=== PATIENT | female | born 1950 | race Two or more races ===

== ENCOUNTER 2017-10-03 18:06 | Inpatient (IN) | payer MEDICARE, MEDICAID ==
--- NOTE | 2017-10-03 18:37 | ED Physician Chart ---
ED Chief Complaint/HPI - Patient Information Date Seen:: 10/03/17 Time Seen:: 18:10 Chief Complaint:: Weakness History of Present Illness:: onset x 2 days of intermittent right sided facial weakness; no report of trauma , LOC, ALOC, AMS, H/As, neck pain, C/P, SOB, Abd. Pain, A/N/V/D/C, fever, chills , or urinary s/s; no report of syncope, NS, or dizziness/vertigo Allergies:: Allergies Allergy/AdvReac Type Severity Reaction Status Date / Time No Known Allergies Allergy Verified 10/03/17 18:08 Vitals:: Vital Signs - 8 hr 10/03/17 18:13 Temp 98 F HR 70 RR 16 BP 141/100 O2 Sat % 96 Historian:: Patient, EMS Review:: Nurse's Note Reviewed, Old Chart Reviewed, EMS run form Reviewed <Christoph Molina - Last Filed: 10/03/17 18:52> - Patient Information Allergies:: Allergies Allergy/AdvReac Type Severity Reaction Status Date / Time No Known Allergies Allergy Verified 10/03/17 18:08 Vitals:: Vital Signs - 8 hr 10/03/17 10/03/17 18:13 20:17 Temp 98 F 98 F HR 70 69 RR 16 16 BP 141/100 166/86 O2 Sat % 96 <Suzy Hahn - Last Filed: 10/04/17 00:00> ED Review of Systems - Review of Systems General/Constitutional: No fever, No chills, No weight loss, Weakness, No diaphoresis, No edema, No loss of appetite Skin: No skin lesions, No rash, No bruising Head: No headache, No light-headedness Eyes: No loss of vision, No pain, No diplopia ENT: No earache, No nasal drainage, No sore throat, No tinnitus Neck: No neck pain, No swelling, No thyromegaly, No stiffness, No mass noted Cardio Vascular: No chest pain, No palpitations, No PND, No orthopnea, No edema Pulmonary: No SOB, No cough, No sputum, No wheezing GI: No nausea, No vomiting, No diarrhea, No pain, No melena, No hematochezia, No constipation, No hematemesis G/U: No dysuria, No frequency, No hematuria, No nacturia Stick Puller: No vaginal discharge, No abnormal vaginal bleed, No contraction Musculoskeletal: No bone or joint pain, No back pain, No muscle pain Endocrine: No polyuria, No polydipsia Psychiatric: No prior psych history, No depression, No anxiety, No suicidal ideation, No homicidal ideation, No auditory hallucination, No visual hallucination Hematopoietic: No bruising, No lymphadenopathy Allergic/Immuno: No urticaria, No angioedema Neurological: No syncope, No focal symptoms, Weakness, No paresthesia, No headache, No seizure, Dizziness, No confusion, Vertigo <Christoph Molina - Last Filed: 10/03/17 18:52> ED Past Medical History - Past Medical History Obtainable: Yes Past Medical History: HTN, Asthma/COPD, PUD/GERD Family History: HTN Social History: Non Smoker, No Alcohol, No Drug Use, , Care Facility Surgical History: Appendectomy, Psychiatricy History: None Medication: Reviewed <Christoph Molina Last Filed: 10/03/17 18:52> Family Medical History - Family Member Mother History Unknown: Yes <Christoph Molina Filed: 10/03/17 18:52> ED Physical Exam - Physical Examination General/Constitutional: Awake, Well-developed, well-nourished, Alert, No distress, GCS 15, Non-toxic appearing, Ambulatory Head: Atraumatic Eyes: Lids, conjuctiva normal, PERRL, EOMI Skin: Nl inspection, No rash, No skin lesions, No ecchymosis, Well hydrated, No lymphadenopathy ENMT: External ears, nose nl, TM canals nl, Nasal exam nl, Lips, teeth, gums nl , Oropharynx nl, Tonsils nl Neck: Nontender, Full ROM w/o pain, No JVD, No nuchal rigidity, No bruit, No mass, No stridor Respiratory: Nl effort/Exclusion, Clear to Auscultation, No Wheeze/Rhonchi/Rales Cardio Vascular: RRR, No murmur, gallop, rubs, NL S1 S2, Carotid/Femoral/Distal pulses equal bilaterally GI: No tenderness/rebounding/guarding, No organomegaly, No hernia, Normal BS's, Nondistended, No mass/bruits, No McBurney tenderness : No CVA tenderness Extremities: No tenderness or effusion, Full ROM, normal strength in all extremities, No edema, Normal digits & nails Neuro/Psych: Alert/oriented, DTR's symmetric, Normal sensory exam, Normal motor strength, Judgement/insight normal, Mood normal, Normal gait Other Neuro/Psych comments:: Right Facial: decreased motor and sensory functions Misc: Normal back, No paraspinal tenderness <Christoph Molina - Last Filed: 10/03/17 18:52> ED Labs/Radiology/EKG Results - Lab Results Results: Laboratory Tests 10/03/17 10/03/17 10/03/17 18:50 18:50 18:50 WBC 5.1 RBC 4.03 Hgb 12.7 Hct 37.3 L MCV 92.4 MCH 31.6 H MCHC Differential 34.2 RDW 12.4 Plt Count 205 MPV 7.6 Neutrophils % 53.6 Lymphocytes % 30.7 Monocytes % 10.5 H Eosinophils % 4.1 Basophils % 1.1 PT 10.1 INR 0.97 D-Dimer Carbon Dioxide 26.2 BUN 19 Creatinine 0.4 L Est GFR ( Amer) > 60.0 Est GFR (Non-Af Amer) > 60.0 BUN/Creatinine Ratio 47.5 Glucose 76 Calcium 9.8 Total Bilirubin 0.4 AST 23 ALT 17 Alkaline Phosphatase 82 Creatine Kinase 118 Troponin I B-Natriuretic Peptide Total Protein 7.9 Albumin 4.1 Globulin 3.8 Albumin/Globulin Ratio 1.1 Triglycerides 118 Cholesterol 142 LDL Cholesterol Direct 85 HDL Cholesterol 43 10/03/17 10/03/17 10/03/17 18:50 18:50 18:50 WBC RBC Hgb Hct MCV MCH MCHC Differential RDW Plt Count MPV Neutrophils % Lymphocytes % Monocytes % Eosinophils % Basophils % PT INR D-Dimer 901 H Carbon Dioxide BUN Creatinine Est GFR ( Amer) Est GFR (Non-Af Amer) BUN/Creatinine Ratio Glucose Calcium Total Bilirubin AST ALT Alkaline Phosphatase Creatine Kinase Troponin I 0.02 B-Natriuretic Peptide 7.2 Total Protein Albumin Globulin Albumin/Globulin Ratio Triglycerides Cholesterol LDL Cholesterol Direct HDL Cholesterol <Suzy Hahn - Last Filed: 10/04/17 00:00> ED Septic Shock - . Is Septic Shock (SBP<90, OR Lactate>4 mmol\L) present?: No - <6hrs of presentation: Vital Signs: Vital Signs - 8 hr 10/03/17 18:13 Temp 98 F HR 70 RR 16 BP 141/100 O2 Sat % 96 <Christoph Molina - Last Filed: 10/03/17 18:52> - <6hrs of presentation: Vital Signs: Vital Signs - 8 hr 10/03/17 10/03/17 18:13 20:17 Temp 98 F 98 F HR 70 69 RR 16 16 BP 141/100 166/86 O2 Sat % 96 <Suzy Hahn - Last Filed: 10/04/17 00:00> ED Reassessment (Disposition) - Reassessment Reassessment Condition:: Improved - Diagnosis Diagnosis:: Weakness; TIA; CVA <Christoph Molina - Last Filed: 10/03/17 18:52> - Reassessment Reassessment:: Right parotid gland area swelling and pain, patient refused CT maxillofacial, u/ s on the right parotid gland area showed no cyst or mass. Elevated D-Dimer, RLE pain and edema, RLE venous u/s: negative for DVT. Patient reported one episode of chest pressure in ER which later subsided. PE cannot be ruled out at this time. Admit patient to telemetry for further evaluation and management. - Patient Disposition Discharge/Transfer:: Acute Care w/in this hosp Admitting Medical Physician:: Linwood Gupta <Suzy Hahn - Last Filed: 10/04/17 00:00>
[2017-10-03 18:59] LABS: % BASOPHILS 1.1 % (0.0-2.0); % EOSINOPHILS 4.1 % (0.0-5.0); % LYMPHOCYTES 30.7 % (20.0-50.0); % MONOCYTES 10.5 % (2.0-10.0); % NEUTROPHILS 53.6 % (40.0-80.0); BASOPHILE ABSOLUTE 0.1 Th/cumm (0-0.2); EOSINOPHILE ABSOLUTE 0.2 Th/cmm (0.1-0.4); HEMATOCRIT 37.3 % (41.0-60); HEMOGLOBIN 12.7 gm/dL (12-16); LYMPHOCYTE ABSOLUTE 1.6 Th/cmm (1.5-3.0); MEAN CELL VOLUME 92.4 fl (81-100); MEAN CORPUSCULAR HEMOGLOBIN 31.6 pg (27.0-31.0); MEAN CORPUSCULAR HGB CONC 34.2 pg (28.0-36.0); MEAN PLATELET VOLUME 7.6 fl; MONOCYTE ABSOLUTE 0.5 Th/cmm (0.3-1.0); NEUTROPHILE ABSOLUTE 2.7 Th/cmm (1.8-8.0); PLATELET COUNT 205 Th/cmm (150-400); RED BLOOD COUNT 4.03 Mil/cmm (3.80-5.20); RED CELL DISTRIBUTION WIDTH 12.4 % (11.5-20.0); WHITE BLOOD COUNT 5.1 Th/cmm (4.8-10.8)
[2017-10-03 19:08] LABS: INR 0.97 (0.5-1.4); PROTHROMBIN TIME (TEST) 10.1 SECONDS (9.5-11.5)
[2017-10-03 19:14] LABS: ALB/GLOB RATIO 1.1 (1.0-1.8); ALBUMIN 4.1 gm/dL (3.7-5.3); ALKALINE PHOSPHATASE 82 U/L (34-104); BILIRUBIN,TOTAL 0.4 mg/dL (0.3-1.0); BUN - UREA NITROGEN 19 mg/dL (7-25); CALCIUM SERUM 9.8 mg/dL (8.6-10.3); CARBON DIOXIDE 26.2 mEq/L (21.0-31.0); CHOLESTEROL 142 mg/dL (<200); CREATININE - SERUM 0.4 mg/dL (0.6-1.2); CREATININE KINASE 118 U/L (30-223); GFR AFRICAN-AMERICAN > 60.0 ml/min (>90); GFR NON AFRICAN-AMERICAN > 60.0 ml/min; GLUCOSE 76 mg/dL (70-105); HDL -HIGH DENSITY LIPOPROTEIN 43 mg/dL (23-92); SGOT 23 U/L (13-39); SGPT/ALT 17 U/L (7-52); TOTAL PROTEIN,SERUM 7.9 gm/dL (6.0-8.3); TRIGLYCERIDES 118 mg/dL (<150)
[2017-10-03] MEDS ORDERED: Sodium Chloride 0.9% 1,000 ML IV ONE (22:15)
[2017-10-04] MEDS ORDERED: DIPHENHYDRAMINE HCL TP PRN (00:19)
[2017-10-04] MEDS ORDERED: [UNRECOGNIZED DRUG - OTHER] TP PRN (00:19)
[2017-10-04] MEDS ORDERED: Menthol/Methyl Salicylate Cream TP PRN (00:19)
[2017-10-04] MEDS ORDERED: ZINC ACETATE TP PRN (00:19)
[2017-10-04] MEDS ORDERED: Fleet Enema 135 mL RC PRN (00:19)
[2017-10-04] MEDS ORDERED: Magnesium Hydroxide (MOM) 30 mL UDC PO PRN (00:19)
[2017-10-04] MEDS ORDERED: guaiFENesin 200 MG/10 ML UDC PO PRN (00:21)
[2017-10-04] MEDS ORDERED: Hydrocodone/APAP 5mg/325mg Tab PO PRN (00:21)
[2017-10-04] MEDS ORDERED: Ipratropium Neb 0.5 mg/2.5 mL UD HHN PRN (00:21)
[2017-10-04 01:16] LABS: ANION GAP 14.3 (7.0-16.0); CHLORIDE 104 mEq/L (98-107); POTASSIUM SERUM 3.5 mEq/L (3.5-5.1); SODIUM SERUM 141 mEq/L (136-145)
[2017-10-04 01:18] VITALS: BP 141/100
[2017-10-04] MEDS: D5-0.9%NS 1,000 ML IV SCH ×2 (01:30→14:38)
[2017-10-04] MEDS: Albuterol Nebulizer 2.5mg/3mL HHN SCH ×4 (07:16→18:56)
--- NOTE | 2017-10-04 08:24 | Diagnostic Imaging Report ---
Ultrasound soft tissues of the neck HISTORY: Right neck swelling Sonographic sector images were obtained over the right neck and right infra-auricular region. No discrete focal lesions are seen. Specific, no abnormal masses or fluid collections. IMPRESSION: 1. Negative examination. If needed, a CT scan would provide additional detail and assessment.
--- NOTE | 2017-10-04 08:24 | Diagnostic Imaging Report ---
CT scan of the brain without contrast History: Stroke, CVA Total DLP equals 562 CTDI equals 34.5 Axial sections were obtained from the base of the skull to the vertex. There is a normal ventricular system size. No focal parenchymal lesions are seen. No evidence of any mass effect or shift of midline structures. No extra-axial masses or abnormal fluid collections. Impression: Negative examination
--- NOTE | 2017-10-04 08:25 | Diagnostic Imaging Report ---
Right lower extremity Doppler venous ultrasound exam HISTORY: Pain/swelling Sonographic sector images were obtained through the deep venous systems of the right leg. Associated Doppler data was obtained. The exam demonstrates patency of the common femoral, superficial femoral, popliteal, and posterior tibial veins. Specifically, no thrombus is seen. There are normal compressibility and augmentation responses. IMPRESSION: Negative exam for deep vein thrombophlebitis.
--- NOTE | 2017-10-04 08:27 | Diagnostic Imaging Report ---
Portable chest x-ray HISTORY: Pain There is a very poor inspiration. Elevation the right hemidiaphragm. Heart size is difficult to assess. No definite focal pulmonary processes. IMPRESSION: 1. Poor inspiration with elevation the right hemidiaphragm. 2. No focal pulmonary processes
[2017-10-04] MEDS ORDERED: VTE Chemical Prophylaxis Screen/Admission MC PRN (10:31)
[2017-10-04] MEDS ORDERED: IOHEXOL 300mgI/mL 100 ML VIAL IVP ONE (13:47)
--- NOTE | 2017-10-04 13:51 | Internal Medicine Prog Note ---
Internal Medicine Subjective - Subjective Service Date: 10/04/17 ([id number] hnp dictated) Internal Medicine Objective - Results Result Diagrams: 10/03/17 18:50 10/03/17 18:50 Recent Labs: Laboratory Last Values WBC 5.1 Th/cmm (4.8-10.8) 10/03/17 18:50 RBC 4.03 Mil/cmm (3.80-5.20) 10/03/17 18:50 Hgb 12.7 gm/dL (12-16) 10/03/17 18:50 Hct 37.3 % (41.0-60) L 10/03/17 18:50 MCV 92.4 fl (81-100) 10/03/17 18:50 MCH 31.6 pg (27.0-31.0) H 10/03/17 18:50 MCHC Differential 34.2 pg (28.0-36.0) 10/03/17 18:50 RDW 12.4 % (11.5-20.0) 10/03/17 18:50 Plt Count 205 Th/cmm (150-400) 10/03/17 18:50 MPV 7.6 fl 10/03/17 18:50 Neutrophils % 53.6 % (40.0-80.0) 10/03/17 18:50 Lymphocytes % 30.7 % (20.0-50.0) 10/03/17 18:50 Monocytes % 10.5 % (2.0-10.0) H 10/03/17 18:50 Eosinophils % 4.1 % (0.0-5.0) 10/03/17 18:50 Basophils % 1.1 % (0.0-2.0) 10/03/17 18:50 PT 10.1 SECONDS (9.5-11.5) 10/03/17 18:50 INR 0.97 (0.5-1.4) 10/03/17 18:50 D-Dimer 901 ng/mL (100-400) H 10/03/17 18:50 Sodium 141 mEq/L (136-145) 10/03/17 18:50 Potassium 3.5 mEq/L (3.5-5.1) 10/03/17 18:50 Chloride 104 mEq/L (98-107) 10/03/17 18:50 Carbon Dioxide 26.2 mEq/L (21.0-31.0) 10/03/17 18:50 Anion Gap 14.3 (7.0-16.0) 10/03/17 18:50 BUN 19 mg/dL (7-25) 10/03/17 18:50 Creatinine 0.4 mg/dL (0.6-1.2) L 10/03/17 18:50 Est GFR ( Amer) > 60.0 ml/min (>90) 10/03/17 18:50 Est GFR (Non-Af Amer) > 60.0 ml/min 10/03/17 18:50 BUN/Creatinine Ratio 47.5 10/03/17 18:50 Glucose 76 mg/dL (70-105) 10/03/17 18:50 Calcium 9.8 mg/dL (8.6-10.3) 10/03/17 18:50 Total Bilirubin 0.4 mg/dL (0.3-1.0) 10/03/17 18:50 AST 23 U/L (13-39) 10/03/17 18:50 ALT 17 U/L (7-52) 10/03/17 18:50 Alkaline Phosphatase 82 U/L (34-104) 10/03/17 18:50 Creatine Kinase 118 U/L (30-223) 10/03/17 18:50 Troponin I 0.02 ng/mL (0.01-0.05) 10/03/17 18:50 B-Natriuretic Peptide 7.2 pg/mL (5.0-100.0) 10/03/17 18:50 Total Protein 7.9 gm/dL (6.0-8.3) 10/03/17 18:50 Albumin 4.1 gm/dL (3.7-5.3) 10/03/17 18:50 Globulin 3.8 gm/dL 10/03/17 18:50 Albumin/Globulin Ratio 1.1 (1.0-1.8) 10/03/17 18:50 Triglycerides 118 mg/dL (<150) 10/03/17 18:50 Cholesterol 142 mg/dL (<200) 10/03/17 18:50 LDL Cholesterol Direct 85 mg/dL (75-193) 10/03/17 18:50 HDL Cholesterol 43 mg/dL (23-92) 10/03/17 18:50 - Physical Exam Vitals and I&O: Vital Signs Temp 98.0 F 10/04/17 12:00 Pulse 78 10/04/17 12:00 Resp 18 10/04/17 12:00 BP 140/80 10/04/17 12:00 Pulse Ox 100 10/04/17 12:00 Intake & Output 10/03/17 10/04/17 10/04/17 18:59 06:59 18:59 Intake Total 1000 Balance 1000 Weight (lbs) 150 lb 164 lb 6.4 oz Intake: Intake, IV Amount 1000 Sodium Chloride 0.9% 1, 1000 000 ml @ Wide Open IV . Q0M ONE Rx#:[id number] Other: Weight Source Estimated Bedscale Active Medications: Current Medications Acetaminophen (Tylenol) 650 mg PO Q4H PRN PRN Reason: Pain Or Fever above 101 Stop: 12/03/17 00:20 Acetaminophen/Hydrocodone Bitart ([place] 5mg/325mg) 1 tab PO Q4H PRN PRN Reason: Pain (Severe) Stop: 12/03/17 00:20 Albuterol Sulfate (Albuterol 2.5mg/3ml Neb Ud) 2.5 mg HHN QIDRT [facility], 1928[facility]1983 Stop: 12/03/17 06:59 Last Admin: 10/04/17 10:47 Dose: 2.5 mg Aspirin (Ecotrin) 81 mg PO DAILY [facility], [facility]–1983 Stop: 12/03/17 08:59 Last Admin: 10/04/17 08:48 Dose: 81 mg Benzocaine/Menthol (Cepacol) 1 doris MM Q2HR PRN PRN Reason: Sore Throat Stop: 12/03/17 00:18 Bisacodyl (Dulcolax 10 Mg Supp) 10 mg RC DAILY PRN PRN Reason: Constipation Stop: 12/03/17 00:18 Guaifenesin (Robitussin) 200 mg PO Q4HR PRN PRN Reason: Cough or Congestion Stop: 12/03/17 00:20 Heparin Sodium (Porcine) (Heparin) 5,000 units SUBQ Q12HR [facility], [facility]1983 Stop: 12/03/17 08:59 Last Admin: 10/04/17 08:48 Dose: 5,000 units Dextrose/Sodium Chloride (D5-0.9%Ns) 1,000 mls @ 80 mls/hr IV .[id number] OLI Stop: 12/03/17 00:29 Last Admin: 10/04/17 01:30 Dose: 80 mls/hr Ibuprofen (Motrin) 800 mg PO Q6H PRN PRN Reason: Pain (Moderate) Stop: 12/03/17 00:18 Ipratropium Britt (Atrovent Neb 0.5mg/2.5ml) 0.5 mg HHN Q2HRT PRN PRN Reason: Shortness of Breath or Wheeze Stop: 12/03/17 00:20 Magnesium Hydroxide (Milk Of Magnesia) 30 ml PO DAILY PRN PRN Reason: Constipation Stop: 12/03/17 00:18 Last Admin: 10/04/17 08:47 Dose: 30 ml Miscellaneous (Diphenhydramine Hcl/Zinc Acet [Benadryl Itch Stopping Crm]) 28.3 gm TP TID PRN PRN Reason: Itching Miscellaneous (Methyl Salicylate/Menth/Camph [Bengay Ultra Strength Cream]) 113 gm TP BID PRN PRN Reason: Pain (Mild) Miscellaneous (Vte Chemical Prophylaxis Screen/ Admission) 1 ea MC PRN PRN PRN Reason: PROTOCOL Stop: 12/03/17 10:30 Nitroglycerin (Nitrostat) 0.4 mg SL Q5MIN PRN PRN Reason: Chest Pain Stop: 12/03/17 00:20 Ondansetron HCl (Zofran) 4 mg IV Q8H PRN PRN Reason: Nausea / Vomiting Stop: 12/03/17 00:20 Sodium Phosphate (Fleet Enema) 135 ml RC DAILY PRN PRN Reason: Constipation Stop: 12/03/17 00:18 Zolpidem Tartrate (Ambien) 10 mg PO HS PRN PRN Reason: Insomnia Stop: 12/03/17 00:20
--- NOTE | 2017-10-04 16:24 | History & Physical ---
ADMIT DATE: 10/04/2017 CHIEF COMPLAINT: Generalized weakness. HISTORY OF PRESENT ILLNESS: This is a 66-year-old female who is a resident of [facility], admitted here to the Telemetry Unit due to a 2-day history of intermittent weakness. The patient states that her right side of her face is more weak than usual. For further management, the patient is now admitted here to the telemetry unit. PAST MEDICAL HISTORY: Hypertension, asthma, COPD and GERD. FAMILY HISTORY: Noncontributory. SOCIAL HISTORY: The patient is a snf resident of [facility], requiring 24-hour nursing care. SURGICAL HISTORY: Appendectomy and . MEDICATIONS: Please see medication list. REVIEW OF SYSTEMS: GENERAL: Denies any fevers and chills. HEENT: Denies any headache, earache or eye pain. The patient complains of nasal congestion. Denies any throat pain. CARDIOVASCULAR: Denies chest pain. RESPIRATORY: Denies shortness of breath. GASTROINTESTINAL: Denies nausea, vomiting, abdominal pain. GENITOURINARY: Denies increased frequency or dysuria. NEUROLOGIC: No headache, seizure or syncope. PHYSICAL EXAMINATION: GENERAL: Obese female, awake, alert, no apparent distress. VITAL SIGNS: Temperature 98.0, heart rate 78, blood pressure 140/80, respiration 18 and O2 100%. HEENT: Head; normocephalic, atraumatic. NECK: Supple. No mass. LUNGS: Clear bilaterally. HEART: Regular rate and rhythm. ABDOMEN: Soft, nontender and nondistended. LABORATORY DATA: WBC 5.1, H and H 12.7/37.3 and platelet of 205. Sodium 141, potassium 3.5, chloride 104, BUN 19, creatinine 0.4 and calcium 9.8. DIAGNOSTICS: The patient had a chest x-ray done and impression is no focal pulmonary processes. The patient also had a CT of the head done, impression is negative examination. Bilateral lower extremity ultrasound was done, negative for any DVT. The patient also had an ultrasound of the right neck, impression is negative examination as well. ASSESSMENT: Generalized weakness, facial numbness, acute chest pain, acute sinus congestion, hypertension, asthma and gastroesophageal reflux disease. PLAN: The patient to be admitted to the telemetry unit. We will get Neurology on the case. PT evaluation. We will get a CT of the soft tissue of neck. We will also get bilateral carotid ultrasound as well. Keep patient on IV fluids for hydration. Since the patient did complain of sinus congestion will add Sudafed. Also, the patient complained of cough, so we will add breathing treatments as well. We will get followup labs for tomorrow morning. We will continue to follow this patient. JOB# [id number]
--- NOTE | 2017-10-05 01:58 | Consultation ---
DATE OF CONSULTATION: 10/04/2017 NEUROLOGY CONSULT HISTORY OF PRESENT ILLNESS: A 66-year-old female, resident of [facility], complains of weakness. She also complains a kind of fullness on the right side of the face. Her current numbness and weakness are better now. She also noted some swelling of ankles. The history is that, she states that she started having weakness about 4 years ago. She was actually seen by a neurologist in [place]. She last saw her neurologist 4 days ago. She had an extensive workup done with a muscle biopsy. 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 She received some steroids initially, but has not had them for some time now. She actually went to [facility] also. They said they confirmed the diagnosis, but could not do anything further for her. The patient, at the moment, feels some difficulty walking. She mainly uses a walker or wheelchair. She is able to swallow okay and is talking okay. Weakness in both legs and arms. PAST MEDICAL HISTORY: Hypertension, asthma, COPD, and GERD. SOCIAL HISTORY: Lives in a assisted. PAST SURGICAL HISTORY: Appendix and . REVIEW OF SYSTEMS: Twelve-point negative except for above. MEDICATIONS: As per reconciliation. The patient is on hydrocodone, aspirin, Robitussin, Motrin, Sudafed, and Ambien. PHYSICAL EXAMINATION: VITAL SIGNS: Temperature 98, blood pressure 140/80, and pulse 78. NECK: Supple. No bruits. CARDIOVASCULAR: Heart sounds S1 and S2. LUNGS: Clear. NEUROLOGIC: The patient is awake and alert. She answers questions. Speech is mildly dysarthric. Pupils are reactive to light. Full eye movement. No nystagmus. Face, slight fullness on the right side, but I do not see any marked weakness. Sensation seems to be present, really no marked deficits. Motor, she currently has weakness of the arms, especially proximally difficulty lifting her arms, but can move them reasonably with a good rivet passer. Legs are very weak. She can just about lift them off the bed, but weak. Reflexes -1 in the upper extremities. I really could not get anything at the knees and ankles. INVESTIGATIONS: She had a CT scan done of the head, which was negative. LABORATORY DATA: WBC 5.1, hemoglobin 12.7, and platelets 205. Sodium 141, potassium 3.5, and BUN is 19. LFTs okay. IMPRESSION: 1. Weakness. 2. Diagnosis of myositis. 3. Some numbness and paresthesia of face, nonspecific, no acute stroke. 4. The patient with hypertension. 5. Asthma and chronic obstructive pulmonary disease. PLAN: I am going to check her lab enzymes. We will do a sed rate, CPK, and aldolase. Continue present treatment. The patient is being followed by neurologist at [place], and will continue to do so on discharge. JOB# [id number]
[2017-10-05] MEDS: D5-0.9%NS 1,000 ML IV SCH ×2 (02:54→15:45)
[2017-10-05 06:07] LABS: % BASOPHILS 0.3 % (0.0-2.0); % EOSINOPHILS 5.9 % (0.0-5.0); % LYMPHOCYTES 35.5 % (20.0-50.0); % MONOCYTES 11.6 % (2.0-10.0); % NEUTROPHILS 46.7 % (40.0-80.0); EOSINOPHILE ABSOLUTE 0.2 Th/cmm (0.1-0.4); HEMATOCRIT 30.5 % (41.0-60); HEMOGLOBIN 10.6 gm/dL (12-16); LYMPHOCYTE ABSOLUTE 1.5 Th/cmm (1.5-3.0); MEAN CELL VOLUME 92.1 fl (81-100); MEAN CORPUSCULAR HEMOGLOBIN 31.9 pg (27.0-31.0); MEAN CORPUSCULAR HGB CONC 34.6 pg (28.0-36.0); MEAN PLATELET VOLUME 7.7 fl; MONOCYTE ABSOLUTE 0.5 Th/cmm (0.3-1.0); NEUTROPHILE ABSOLUTE 1.9 Th/cmm (1.8-8.0); PLATELET COUNT 153 Th/cmm (150-400); RED BLOOD COUNT 3.32 Mil/cmm (3.80-5.20); RED CELL DISTRIBUTION WIDTH 12.4 % (11.5-20.0); WHITE BLOOD COUNT 4.1 Th/cmm (4.8-10.8)
[2017-10-05] MEDS: Albuterol Nebulizer 2.5mg/3mL HHN SCH ×4 (06:47→19:12)
--- NOTE | 2017-10-05 08:30 | Diagnostic Imaging Report ---
CT soft tissue neck with IV contrast History: Neck and facial swelling Comparison: None Technique: Axial images were obtained from the base of the skull to the upper thorax with IV contrast, reconstructions were made. Total DLP 331, CTD I 12 Findings: The globes and intraconal compartments are grossly intact. Note exam is limited due to motion. The visualized paranasal sinuses are clear. Mild fluid is seen within bilateral mastoid air cells. There is mild haziness of the right facial subcutaneous tissue along the right parotid and extending inferiorly. A few borderline prominent lymph nodes are seen including intraparotid lymph nodes and the right jugular chain lymph nodes. Additional borderline prominent right submandibular lymph nodes are noted. The largest is in the right submandibular region measuring 1.2 x 0.7 cm. The thyroid gland is grossly unremarkable. There is increased size of the right jugular vein relation to the left. Mild atherosclerosis is noted. No evidence of an abscess.There is mild prominence of the uvula. The airways intact. No prevertebral soft tissue swelling. Degenerative changes of the spine are noted. The lung apices demonstrate atelectatic and hypoventilatory changes IMPRESSION: Mild haziness and inflammatory changes along the right facial region adjacent to the right parotid gland extending inferiorly. Findings may be due to underlying inflammatory processes are possible parotiditis. Mildly prominent surrounding lymph nodes are noted which are nonspecific and may be reactive. No evidence of an abscess. Mild prominence of the uvula, inflammatory process cannot be excluded. Increase in size of the right jugular vein in relation to the left, significance uncertain. Mild atherosclerotic vascular disease.
--- NOTE | 2017-10-05 08:31 | Diagnostic Imaging Report ---
Bilateral lower extremity arterial Doppler study HISTORY: Pain, rule out stenosis COMPARISON: None Technique: Longitudinal and transverse sonographic images of the bilateral lower extremity arteries were obtained with doppler analysis. FINDINGS: Exam of the right side demonstrates mild atherosclerotic vascular disease with primarily triphasic waveforms. Exam of the left side demonstrates mild atherosclerotic vascular disease with primarily triphasic waveforms. Right RACHAEL 1.1 Left RACHAEL 1.1 IMPRESSION: Mild bilateral atherosclerotic vascular disease. No evidence of occlusion.
[2017-10-05 08:41] LABS: BUN - UREA NITROGEN 12 mg/dL (7-25); CALCIUM SERUM 8.7 mg/dL (8.6-10.3); CARBON DIOXIDE 24.1 mEq/L (21.0-31.0); CHLORIDE 111 mEq/L (98-107); CREATININE - SERUM 0.3 mg/dL (0.6-1.2); GFR AFRICAN-AMERICAN > 60.0 ml/min (>90); GFR NON AFRICAN-AMERICAN > 60.0 ml/min; GLUCOSE 99 mg/dL (70-105); POTASSIUM SERUM 3.1 mEq/L (3.5-5.1); SODIUM SERUM 140 mEq/L (136-145)
[2017-10-05] MEDS ORDERED: Potassium Chloride 20 mEq ER Tab PO ONE (12:04)
--- NOTE | 2017-10-05 12:22 | Internal Medicine Prog Note ---
Internal Medicine Subjective - Subjective Service Date: 10/05/17 Patient seen and examined:: with staff Patient is:: awake, non-verbal Per staff patient has:: tolerating meds Internal Medicine Objective - Results Result Diagrams: 10/05/17 06:00 10/05/17 06:00 Recent Labs: Laboratory Last Values WBC 4.1 Th/cmm (4.8-10.8) L 10/05/17 06:00 RBC 3.32 Mil/cmm (3.80-5.20) L 10/05/17 06:00 Hgb 10.6 gm/dL (12-16) L 10/05/17 06:00 Hct 30.5 % (41.0-60) L 10/05/17 06:00 MCV 92.1 fl (81-100) 10/05/17 06:00 MCH 31.9 pg (27.0-31.0) H 10/05/17 06:00 MCHC Differential 34.6 pg (28.0-36.0) 10/05/17 06:00 RDW 12.4 % (11.5-20.0) 10/05/17 06:00 Plt Count 153 Th/cmm (150-400) 10/05/17 06:00 MPV 7.7 fl 10/05/17 06:00 Neutrophils % 46.7 % (40.0-80.0) 10/05/17 06:00 Lymphocytes % 35.5 % (20.0-50.0) 10/05/17 06:00 Monocytes % 11.6 % (2.0-10.0) H 10/05/17 06:00 Eosinophils % 5.9 % (0.0-5.0) H 10/05/17 06:00 Basophils % 0.3 % (0.0-2.0) 10/05/17 06:00 ESR 62 mm/hr (0-30) H 10/05/17 04:50 PT 10.1 SECONDS (9.5-11.5) 10/03/17 18:50 INR 0.97 (0.5-1.4) 10/03/17 18:50 D-Dimer 901 ng/mL (100-400) H 10/03/17 18:50 Sodium 140 mEq/L (136-145) 10/05/17 06:00 Potassium 3.1 mEq/L (3.5-5.1) L 10/05/17 06:00 Chloride 111 mEq/L (98-107) H 10/05/17 06:00 Carbon Dioxide 24.1 mEq/L (21.0-31.0) 10/05/17 06:00 Anion Gap 8.0 (7.0-16.0) 10/05/17 06:00 BUN 12 mg/dL (7-25) 10/05/17 06:00 Creatinine 0.3 mg/dL (0.6-1.2) L 10/05/17 06:00 Est GFR ( Amer) > 60.0 ml/min (>90) 10/05/17 06:00 Est GFR (Non-Af Amer) > 60.0 ml/min 10/05/17 06:00 BUN/Creatinine Ratio 40.0 10/05/17 06:00 Glucose 99 mg/dL (70-105) 10/05/17 06:00 Calcium 8.7 mg/dL (8.6-10.3) 10/05/17 06:00 Total Bilirubin 0.4 mg/dL (0.3-1.0) 10/03/17 18:50 AST 23 U/L (13-39) 10/03/17 18:50 ALT 17 U/L (7-52) 10/03/17 18:50 Alkaline Phosphatase 82 U/L (34-104) 10/03/17 18:50 Creatine Kinase 76 U/L (30-223) 10/05/17 04:50 Troponin I 0.02 ng/mL (0.01-0.05) 10/03/17 18:50 B-Natriuretic Peptide 7.2 pg/mL (5.0-100.0) 10/03/17 18:50 Total Protein 7.9 gm/dL (6.0-8.3) 10/03/17 18:50 Albumin 4.1 gm/dL (3.7-5.3) 10/03/17 18:50 Globulin 3.8 gm/dL 10/03/17 18:50 Albumin/Globulin Ratio 1.1 (1.0-1.8) 10/03/17 18:50 Triglycerides 118 mg/dL (<150) 10/03/17 18:50 Cholesterol 142 mg/dL (<200) 10/03/17 18:50 LDL Cholesterol Direct 85 mg/dL (75-193) 10/03/17 18:50 HDL Cholesterol 43 mg/dL (23-92) 10/03/17 18:50 TSH 2.67 uIU/ml (0.34-5.60) 10/05/17 04:50 - Physical Exam Vitals and I&O: Vital Signs Temp 98.0 F 10/05/17 08:00 Pulse 88 10/05/17 10:44 Resp 18 10/05/17 10:44 BP 165/96 10/04/17 21:00 Pulse Ox 95 10/05/17 10:44 Intake & Output 10/04/17 10/05/17 10/05/17 18:59 06:59 18:59 Intake Total 1000 1221.333 Balance 1000 1221.333 Weight (lbs) 164 lb 6.4 oz Intake: Intake, IV Amount 1000 981.333 D5-0.9%Ns 1,000 ml @ 80 1000 981.333 mls/hr IV .[id number] [facility] Rx #:[id number] Oral 240 Other: # Voids 3 Weight Source Bedscale Active Medications: Current Medications Acetaminophen (Tylenol) 650 mg PO Q4H PRN PRN Reason: Pain Or Fever above 101 Stop: 12/03/17 00:20 Last Admin: 10/04/17 17:40 Dose: 650 mg Acetaminophen/Hydrocodone Bitart ([place] 5mg/325mg) 1 tab PO Q4H PRN PRN Reason: Pain (Severe) Stop: 12/03/17 00:20 Albuterol Sulfate (Albuterol 2.5mg/3ml Neb Ud) 2.5 mg HHN QIDRT [facility] Stop: 12/03/17 06:59 Last Admin: 10/05/17 10:43 Dose: 2.5 mg Aspirin (Ecotrin) 81 mg PO DAILY [facility] Stop: 12/03/17 08:59 Last Admin: 10/05/17 10:04 Dose: 81 mg Benzocaine/Menthol (Cepacol) 1 doris MM Q2HR PRN PRN Reason: Sore Throat Stop: 12/03/17 00:18 Bisacodyl (Dulcolax 10 Mg Supp) 10 mg RC DAILY PRN PRN Reason: Constipation Stop: 10/21/18 00:18 Camphor/Menthol (Beng[place] Greaseless 10%-15%) 113 appl TP BID PRN PRN Reason: Pain (Mild) Stop: 11/03/17 00:18 Guaifenesin (Robitussin) 200 mg PO Q4HR PRN PRN Reason: Cough or Congestion Stop: 12/03/17 00:20 Last Admin: 10/04/17 17:41 Dose: 200 mg Heparin Sodium (Porcine) (Heparin) 5,000 units SUBQ Q12HR OLI Stop: 12/03/17 08:59 Last Admin: 10/05/17 10:04 Dose: 5,000 units Dextrose/Sodium Chloride (D5-0.9%Ns) 1,000 mls @ 80 mls/hr IV .[id number] [facility] Stop: 12/03/17 00:29 Last Admin: 10/05/17 02:54 Dose: 80 mls/hr Ibuprofen (Motrin) 800 mg PO Q6H PRN PRN Reason: Pain (Moderate) Stop: 12/03/17 00:18 Ipratropium [place] (Atrovent Neb 0.5mg/2.5ml) 0.5 mg HHN Q2HRT PRN PRN Reason: Shortness of Breath or Wheeze Stop: 12/03/17 00:20 Magnesium Hydroxide (Milk Of Magnesia) 30 ml PO DAILY PRN PRN Reason: Constipation Stop: 12/03/17 00:18 Last Admin: 10/04/17 08:47 Dose: 30 ml Miscellaneous (Diphenhydramine Hcl/Zinc Acet [Benadryl Itch Stopping Crm]) 28.3 gm TP TID PRN PRN Reason: Itching Miscellaneous (Vte Chemical Prophylaxis Screen/ Admission) 1 ea MC PRN PRN PRN Reason: PROTOCOL Stop: 12/03/17 10:30 Nitroglycerin (Nitrostat) 0.4 mg SL Q5MIN PRN PRN Reason: Chest Pain Stop: 12/03/17 00:20 Ondansetron HCl (Zofran) 4 mg IV Q8H PRN PRN Reason: Nausea / Vomiting Stop: 12/03/17 00:20 Pseudoephedrine HCl (Sudafed) 30 mg PO Q6H PRN PRN Reason: Congestion Stop: 12/03/17 13:51 Sodium Phosphate (Fleet Enema) 135 ml RC DAILY PRN PRN Reason: Constipation Stop: 12/03/17 00:18 Zolpidem Tartrate (Ambien) 10 mg PO HS PRN PRN Reason: Insomnia Stop: 12/03/17 00:20 General: alert HEENT: NC/AT, PERRLA Neck: Supple Lungs: CTAB Cardiovascular: RRR, Normal S1, Normal S2 Abdomen: soft, non-tender, positive bowel sound Extremities: excoriation Neurological: alert Internal Medicine Assmt/Plan - Assessment Assessment: generalized weakness myositis paresthesia acute chest pain sinus congestion htn asthma gerd - Plan Plan: pt to continue prn sudafed follow up labs in am continue current plan of care Nutritional Asmnt/Malnutr-PDOC - Dietary Evaluation Malnutrition Findings (Please click <Entered> for more info): Nutritional Asmnt/Malnutrition Start: 10/04/17 16: 55 Text: Status: Complete Freq: Protocol: Document 10/04/17 16:55 LCHENG (Rec: 10/04/17 16:59 [email or web address]) Nutritional Asmnt/Malnutrition Patient General Information Nutritional Screening High Risk Diagnosis generalized weakness Pertinent Medical Hx/Surgical Hx HTN, Astma/COPD, PUD, GERD, appendectomy, C section Subjective Information Pt was not available at time of visit. Zeke score 12 at admission noted. Current Diet Order/ Nutrition Support regular Pertinent Medications D5-0.9%ns Pertinent Labs 10/03 Cr 0.4 Nutritional Hx/Data Height 5 ft 2 in Height (Calculated Centimeters) 157.5 Current Weight (lbs) 164 lb Weight (Calculated Kilograms) 74.4 Weight (Calculated Grams) 98571.1 [place] Body Weight 110 Body Mass Index (BMI) 29.9 Weight Status Overweight GI Symptoms GI Symptoms None Last BM not indicated Difficult in: None Skin Integrity/Comment: reddened to right arm. skin intact Estimated Nutritional Goals BEE in Kcals: Adj wt of IBW Calories/Kcals/Kg 25-30 Kcals Calculated 6273-8446 Protein: Adj wt of IBW Protein g/k Protein Calculated 56 Fluid: ml 1400-1680ml (1ml/kcal) Nutritional Problem No current Nutrition Prob Problem N/A Malnutrition Alert Is there a minimum of two criteria No selected? Query Text:Check all the applicable criteria. A minimum of two criteria are recommended for diagnosis of either severe or non-severe malnutrition. Malnutrition Related to Morbid Obesity Malnutrition related to morbid obesity No Intervention/Recommendation Comments 1. Continue with current diet as ordered. Monitor tolerance. 2. Monitor PO intake, wt, labs and skin integrity 3. F/U as moderate risk in 3-5 days, 10/07-10/09, PO check Expected Outcomes/Goals Expected Outcomes/Goals 1. PO intake to meet at least 75% of nutritional needs. 2. Wt stability, skin to remain intact, labs to approach WNL.
[2017-10-06] MEDS: D5-0.9%NS 1,000 ML IV SCH (05:14)
[2017-10-06 05:31] LABS: % BASOPHILS 0.3 % (0.0-2.0); % EOSINOPHILS 5.8 % (0.0-5.0); % LYMPHOCYTES 33.3 % (20.0-50.0); % NEUTROPHILS 49.6 % (40.0-80.0); EOSINOPHILE ABSOLUTE 0.3 Th/cmm (0.1-0.4); HEMATOCRIT 32.4 % (41.0-60); LYMPHOCYTE ABSOLUTE 1.5 Th/cmm (1.5-3.0); MEAN CELL VOLUME 93.3 fl (81-100); MEAN CORPUSCULAR HEMOGLOBIN 31.7 pg (27.0-31.0); MEAN CORPUSCULAR HGB CONC 33.9 pg (28.0-36.0); MEAN PLATELET VOLUME 7.7 fl; MONOCYTE ABSOLUTE 0.5 Th/cmm (0.3-1.0); NEUTROPHILE ABSOLUTE 2.1 Th/cmm (1.8-8.0); PLATELET COUNT 177 Th/cmm (150-400); RED BLOOD COUNT 3.47 Mil/cmm (3.80-5.20); RED CELL DISTRIBUTION WIDTH 12.6 % (11.5-20.0); WHITE BLOOD COUNT 4.4 Th/cmm (4.8-10.8)
[2017-10-06 05:42] LABS: ANION GAP 9.3 (7.0-16.0); BUN - UREA NITROGEN 9 mg/dL (7-25); CALCIUM SERUM 9.2 mg/dL (8.6-10.3); CARBON DIOXIDE 24.4 mEq/L (21.0-31.0); CHLORIDE 110 mEq/L (98-107); CREATININE - SERUM 0.3 mg/dL (0.6-1.2); GFR AFRICAN-AMERICAN > 60.0 ml/min (>90); GFR NON AFRICAN-AMERICAN > 60.0 ml/min; GLUCOSE 86 mg/dL (70-105); MAGNESIUM 1.9 mg/dL (1.9-2.7); POTASSIUM SERUM 3.7 mEq/L (3.5-5.1); SODIUM SERUM 140 mEq/L (136-145)
[2017-10-06 07:09] LABS: FOLIC ACID 13.6 ng/mL (>3.0)
[2017-10-06] MEDS: Albuterol Nebulizer 2.5mg/3mL HHN SCH ×2 (07:19→11:22)
--- NOTE | 2017-10-06 12:55 | Internal Medicine Prog Note ---
Internal Medicine Subjective - Subjective Service Date: 10/06/17 (dc summary [id number]) Patient is:: awake, non-verbal Per staff patient has:: tolerating meds Internal Medicine Objective - Results Result Diagrams: 10/06/17 04:55 10/06/17 04:55 Recent Labs: Laboratory Last Values WBC 4.4 Th/cmm (4.8-10.8) L 10/06/17 04:55 RBC 3.47 Mil/cmm (3.80-5.20) L 10/06/17 04:55 Hgb 11.0 gm/dL (12-16) L 10/06/17 04:55 Hct 32.4 % (41.0-60) L 10/06/17 04:55 MCV 93.3 fl (81-100) 10/06/17 04:55 MCH 31.7 pg (27.0-31.0) H 10/06/17 04:55 MCHC Differential 33.9 pg (28.0-36.0) 10/06/17 04:55 RDW 12.6 % (11.5-20.0) 10/06/17 04:55 Plt Count 177 Th/cmm (150-400) 10/06/17 04:55 MPV 7.7 fl 10/06/17 04:55 Neutrophils % 49.6 % (40.0-80.0) 10/06/17 04:55 Lymphocytes % 33.3 % (20.0-50.0) 10/06/17 04:55 Monocytes % 11.0 % (2.0-10.0) H 10/06/17 04:55 Eosinophils % 5.8 % (0.0-5.0) H 10/06/17 04:55 Basophils % 0.3 % (0.0-2.0) 10/06/17 04:55 ESR 62 mm/hr (0-30) H 10/05/17 04:50 PT 10.1 SECONDS (9.5-11.5) 10/03/17 18:50 INR 0.97 (0.5-1.4) 10/03/17 18:50 D-Dimer 901 ng/mL (100-400) H 10/03/17 18:50 Sodium 140 mEq/L (136-145) 10/06/17 04:55 Potassium 3.7 mEq/L (3.5-5.1) 10/06/17 04:55 Chloride 110 mEq/L (98-107) H 10/06/17 04:55 Carbon Dioxide 24.4 mEq/L (21.0-31.0) 10/06/17 04:55 Anion Gap 9.3 (7.0-16.0) 10/06/17 04:55 BUN 9 mg/dL (7-25) 10/06/17 04:55 Creatinine 0.3 mg/dL (0.6-1.2) L 10/06/17 04:55 Est GFR ( Amer) > 60.0 ml/min (>90) 10/06/17 04:55 Est GFR (Non-Af Amer) > 60.0 ml/min 10/06/17 04:55 BUN/Creatinine Ratio 30.0 10/06/17 04:55 Glucose 86 mg/dL (70-105) 10/06/17 04:55 Calcium 9.2 mg/dL (8.6-10.3) 10/06/17 04:55 Magnesium 1.9 mg/dL (1.9-2.7) 10/06/17 04:55 Total Bilirubin 0.4 mg/dL (0.3-1.0) 10/03/17 18:50 AST 23 U/L (13-39) 10/03/17 18:50 ALT 17 U/L (7-52) 10/03/17 18:50 Alkaline Phosphatase 82 U/L (34-104) 10/03/17 18:50 Creatine Kinase 76 U/L (30-223) 10/05/17 04:50 Troponin I 0.02 ng/mL (0.01-0.05) 10/03/17 18:50 B-Natriuretic Peptide 38.1 pg/mL (5.0-100.0) 10/06/17 04:55 Total Protein 7.9 gm/dL (6.0-8.3) 10/03/17 18:50 Albumin 4.1 gm/dL (3.7-5.3) 10/03/17 18:50 Globulin 3.8 gm/dL 10/03/17 18:50 Albumin/Globulin Ratio 1.1 (1.0-1.8) 10/03/17 18:50 Triglycerides 118 mg/dL (<150) 10/03/17 18:50 Cholesterol 142 mg/dL (<200) 10/03/17 18:50 LDL Cholesterol Direct 85 mg/dL (75-193) 10/03/17 18:50 HDL Cholesterol 43 mg/dL (23-92) 10/03/17 18:50 Vitamin B12 390 pg/mL (232-1245) 10/05/17 04:50 Folic Acid 13.6 ng/mL (>3.0) 10/05/17 04:50 TSH 2.67 uIU/ml (0.34-5.60) 10/05/17 04:50 - Physical Exam Vitals and I&O: Vital Signs Temp 98.2 F 10/06/17 07:53 Pulse 85 10/06/17 11:22 Resp 18 10/06/17 11:22 BP 140/87 10/06/17 07:53 Pulse Ox 95 10/06/17 11:22 Intake & Output 10/05/17 10/06/17 10/06/17 18:59 06:59 18:59 Intake Total 1000 1000 Balance 1000 1000 Intake: Intake, IV Amount 1000 1000 D5-0.9%Ns 1,000 ml @ 80 1000 1000 mls/hr IV .[id number] COUNTS INCLUDE 234 BEDS AT THE [facility] Rx #:[id number] Active Medications: Current Medications Acetaminophen (Tylenol) 650 mg PO Q4H PRN PRN Reason: Pain Or Fever above 101 Stop: 12/03/17 00:20 Last Admin: 10/04/17 17:40 Dose: 650 mg Acetaminophen/Hydrocodone Bitart ([place] 5mg/325mg) 1 tab PO Q4H PRN PRN Reason: Pain (Severe) Stop: 12/03/17 00:20 Albuterol Sulfate (Albuterol 2.5mg/3ml Neb Ud) 2.5 mg HHN QIDRT COUNTS INCLUDE 234 BEDS AT THE [facility] Stop: 12/03/17 06:59 Last Admin: 10/06/17 11:22 Dose: 2.5 mg Aspirin (Ecotrin) 81 mg PO DAILY COUNTS INCLUDE 234 BEDS AT THE [facility] Stop: 12/03/17 08:59 Last Admin: 10/06/17 09:07 Dose: 81 mg Benzocaine/Menthol (Cepacol) 1 doris MM Q2HR PRN PRN Reason: Sore Throat Stop: 12/03/17 00:18 Bisacodyl (Dulcolax 10 Mg Supp) 10 mg RC DAILY PRN PRN Reason: Constipation Stop: 12/03/17 00:18 Camphor/Menthol ([place] Greaseless 10%-15%) 113 appl TP BID PRN PRN Reason: Pain (Mild) Stop: 11/03/17 00:18 Guaifenesin (Robitussin) 200 mg PO Q4HR PRN PRN Reason: Cough or Congestion Stop: 12/03/17 00:20 Last Admin: 10/04/17 17:41 Dose: 200 mg Heparin Sodium (Porcine) (Heparin) 5,000 units SUBQ Q12HR OLI Stop: 12/03/17 08:59 Last Admin: 10/06/17 09:07 Dose: 5,000 units Dextrose/Sodium Chloride (D5-0.9%Ns) 1,000 mls @ 80 mls/hr IV .[id number] OLI Stop: 12/03/17 00:29 Last Admin: 10/06/17 05:14 Dose: 80 mls/hr Ibuprofen (Motrin) 800 mg PO Q6H PRN PRN Reason: Pain (Moderate) Stop: 12/03/17 00:18 Ipratropium [place] (Atrovent Neb 0.5mg/2.5ml) 0.5 mg HHN Q2HRT PRN PRN Reason: Shortness of Breath or Wheeze Stop: 12/03/17 00:20 Magnesium Hydroxide (Milk Of Magnesia) 30 ml PO DAILY PRN PRN Reason: Constipation Stop: 12/03/17 00:18 Last Admin: 10/04/17 08:47 Dose: 30 ml Miscellaneous (Diphenhydramine Hcl/Zinc Acet [Benadryl Itch Stopping Crm]) 28.3 gm TP TID PRN PRN Reason: Itching Miscellaneous (Vte Chemical Prophylaxis Screen/ Admission) 1 ea MC PRN PRN PRN Reason: PROTOCOL Stop: 12/03/17 10:30 Nitroglycerin (Nitrostat) 0.4 mg SL Q5MIN PRN PRN Reason: Chest Pain Stop: 12/03/17 00:20 Ondansetron HCl (Zofran) 4 mg IV Q8H PRN PRN Reason: Nausea / Vomiting Stop: 12/03/17 00:20 Pseudoephedrine HCl (Sudafed) 30 mg PO Q6H PRN PRN Reason: Congestion Stop: 12/03/17 13:51 Sodium Phosphate (Fleet Enema) 135 ml RC DAILY PRN PRN Reason: Constipation Stop: 12/03/17 00:18 Zolpidem Tartrate (Ambien) 10 mg PO HS PRN PRN Reason: Insomnia Stop: 12/03/17 00:20 General: alert HEENT: NC/AT, PERRLA Neck: Supple Lungs: CTAB Cardiovascular: RRR, Normal S1, Normal S2 Abdomen: soft, non-tender, positive bowel sound Extremities: excoriation Neurological: alert Internal Medicine Assmt/Plan - Assessment Assessment: generalized weakness myositis paresthesia acute chest pain sinus congestion htn asthma gerd - Plan Plan: pt to continue prn sudafed follow up labs in am continue current plan of care Nutritional Asmnt/Malnutr-PDOC - Dietary Evaluation Malnutrition Findings (Please click <Entered> for more info): Nutritional Asmnt/Malnutrition Start: 10/04/17 16: 55 Text: Status: Complete Freq: Protocol: Document 10/04/17 16:55 LCHENG (Rec: 10/04/17 16:59 LCHENG [email or web address]) Nutritional Asmnt/Malnutrition Patient General Information Nutritional Screening High Risk Diagnosis generalized weakness Pertinent Medical Hx/Surgical Hx HTN, Astma/COPD, PUD, GERD, appendectomy, C section Subjective Information Pt was not available at time of visit. Zeke score 12 at admission noted. Current Diet Order/ Nutrition Support regular Pertinent Medications D5-0.9%ns Pertinent Labs 10/03 Cr 0.4 Nutritional Hx/Data Height 5 ft 2 in Height (Calculated Centimeters) 157.5 Current Weight (lbs) 164 lb Weight (Calculated Kilograms) 74.4 Weight (Calculated Grams) 94694.1 [place] Body Weight 110 Body Mass Index (BMI) 29.9 Weight Status Overweight GI Symptoms GI Symptoms None Last BM not indicated Difficult in: None Skin Integrity/Comment: reddened to right arm. skin intact Estimated Nutritional Goals BEE in Kcals: Adj wt of IBW Calories/Kcals/Kg 25-30 Kcals Calculated 5672-7633 Protein: Adj wt of IBW Protein g/k Protein Calculated 56 Fluid: ml 1400-1680ml (1ml/kcal) Nutritional Problem No current Nutrition Prob Problem N/A Malnutrition Alert Is there a minimum of two criteria No selected? Query Text:Check all the applicable criteria. A minimum of two criteria are recommended for diagnosis of either severe or non-severe malnutrition. Malnutrition Related to Morbid Obesity Malnutrition related to morbid obesity No Intervention/Recommendation Comments 1. Continue with current diet as ordered. Monitor tolerance. 2. Monitor PO intake, wt, labs and skin integrity 3. F/U as moderate risk in 3-5 days, 10/07-10/09, PO check Expected Outcomes/Goals Expected Outcomes/Goals 1. PO intake to meet at least 75% of nutritional needs. 2. Wt stability, skin to remain intact, labs to approach WNL.
--- NOTE | 2017-10-06 20:51 | Discharge Summary ---
DATE OF DISCHARGE: 10/06/2017 DISCHARGE DIAGNOSES: Generalized weakness; facial numbness, which has resolved; acute chest pain, resolved; acute sinus congestion, which has been treated; hypertension; asthma and gastroesophageal reflux disease. HISTORY OF PRESENT ILLNESS: A 66-year-old female who is a resident of [facility], admitted to the telemetry unit due to 2-day history of intermittent weakness. The patient states that her right side of her face is more weak than usual. For further management, the patient was admitted. PHYSICAL EXAMINATION: GENERAL: The patient is well developed, well nourished and in no apparent distress. VITAL SIGNS: Stable. HEENT: Head is normocephalic and atraumatic. NECK: Supple. No mass. LUNGS: Clear bilaterally. HEART: Regular rate and rhythm. ABDOMEN: Soft and nontender. HOSPITAL COURSE: During the hospital stay, the patient was admitted to the telemetry unit. The patient had a CT of the head done, impression is negative examination. The patient also had bilateral lower extremity ultrasound done negative for any DVT. The patient was kept on IV fluids for hydration. The patient's facial numbness has been resolved. The patient was also seen by neurologist. His plan of care for this patient was to for the patient to follow up with her neurologist since the patient has a neurologist appointment next week on Monday. CONDITION UPON DISCHARGE: Fair. DISPOSITION: [facility]. JOB# [id number]
== END 2017-10-06 16:35 | DRG 556 ==
LOC: ER 18:06 → TELE 23:50
PROVIDERS: ADMIT Internal Medicine; ATTEND Internal Medicine
DX: M60.9 Myositis, unspecified (principal); R20.0 Anesthesia of skin; R07.9 Chest pain, unspecified; J45.909 Unspecified asthma, uncomplicated; J44.9 Chronic obstructive pulmonary disease, unspecified; I10 Essential (primary) hypertension; K21.9 Gastro-esophageal reflux disease without esophagitis; Z90.49 Acquired absence of other specified parts of digestive tract; Z82.49 Family history of ischemic heart disease and other diseases of the circulatory system; Z79.899 Other long term (current) drug therapy
CPT/HCPCS: 36415-UA; 70450-TC; 70491-TC; 71045-TC; 76536-TC; 80048-TC; 80053-TC; 80061-TC; 82085-90; 82550-TC; 82607-90; 82746-90; 83735-TC; 83880-TC; 84443-TC; 84484-TC; 85025-TC; 85379-TC; 85610-TC; 85652-TC; 93005; 93925-TC; 93971-TC-RT; 94640; 94760; 97530; J1644; J1885; J7030; J7042; J7613; Q9967; X3401; X3904; Z7610